=== PATIENT | male | born 1965 | race Caucasian/White ===

== ENCOUNTER 2025-05-06 13:20 | Emergency (ER) | payer OTHER ==
[~2025-05-06] VITALS: Ht 170.2 cm; Wt 100.0 kg
[2025-05-06 13:24] VITALS: O2SAT 99
[2025-05-06] MEDS ORDERED: CYCL5TAB3 MT (14:55)
[2025-05-06] MEDS ORDERED: IBUP-2028 MT (14:55)
[2025-05-06] MEDS ORDERED: ACET-2708 MT (14:55)
[2025-05-06] MEDS ORDERED: LIDO-53 TP (14:55)
[2025-05-06] MEDS: HYDROCODONE/ACETAMINOPHEN 5/325MG TABLET PO ONE (15:53)
[2025-05-06] MEDS: ACETAMINOPHEN 325MG TABLET PO ONE (15:54)
[2025-05-06] MEDS: LIDOCAINE 5% PATCH TOP SCH (15:54)
[2025-05-06] MEDS: KETOROLAC 30MG/ML VIAL IM ONE (15:55)
[2025-05-06 16:40] VITALS: BP 167/84; PULSE 87; RESP 18; TEMP 36.9; O2SAT 100
== END 2025-05-06 16:46 | disposition home or self-care (01) ==
LOC: ER 13:36
DX: S39.012A Strain of muscle, fascia and tendon of lower back, initial encounter (principal); S16.1XXA Strain of muscle, fascia and tendon at neck level, initial encounter; S09.90XA Unspecified injury of head, initial encounter; V49.40XA Driver injured in collision with unspecified motor vehicles in traffic accident, initial encounter; Y93.89 Activity, other specified; Y92.89 Other specified places as the place of occurrence of the external cause; Y99.8 Other external cause status
CPT/HCPCS: 73522; 70450; 72125; 72131; 96372; 99285; J1885; Z7610 ×2